=== PATIENT | female | born 1990 | race Two or more races ===

== ENCOUNTER 2024-01-13 20:23 | Emergency (ER) | payer OTHER ==
[~2024-01-13] VITALS: Ht 167.6 cm; Wt 68.0 kg
[2024-01-13] MEDS: IV NS 0.9% 1,000 ML BAG IV ONE (20:48)
[2024-01-13 20:52] LABS: BASOPHILS # (AUTO) 0.1 K/uL (0.0-0.2); BASOPHILS % (AUTO) 0.9 % (0.0-2.0); EOSINOPHILS # (AUTO) 0.1 K/uL (0.0-0.7); EOSINOPHILS % (AUTO) 1.3 % (0.0-6.0); HEMATOCRIT 34 % (33-45); LYMPHOCYTES # (AUTO) 1.5 K/uL (0.8-4.8); LYMPHOCYTES % (AUTO) 18.6 % (20.0-44.0); MEAN CORPUSCULAR HEMOGLOBIN 28 PG (26.0-33.0); MEAN CORPUSCULAR HGB CONC 33 g/dl (31.0-36.0); MEAN CORPUSCULAR VOLUME 86 fL (82-100); MONOCYTES # (AUTO) 0.7 K/uL (0.1-1.30); MONOCYTES % (AUTO) 9.5 % (2.0-12.0); NEUTROPHILS # (AUTO) 5.5 K/uL (1.8-8.9); NEUTROPHILS % (AUTO) 69.7 % (43.0-81.0); PLATELET COUNT (AUTO) 257 K/uL (150-450); RED BLOOD CELL COUNT(AUTO) 3.95 MIL/uL (4.0-5.2); RED CELL DISTRIBUTION WIDTH 16.3 % (11.5-15.0); WHITE BLOOD COUNT (AUTO) 7.9 K/uL (4.3-11.0)
[2024-01-13 21:00] LABS: CALCIUM, SERUM 8.4 mg/dL (8.5-10.1); CREATININE 0.9 mg/dL (0.6-1.3); POTASSIUM 3.3 mmol/L (3.5-5.1)
[2024-01-13] MEDS ORDERED: POTASSIUM CHLORIDE 20 MEQ TAB.PRT.SR PO ONE (21:13)
[2024-01-13] MEDS ORDERED: Magnesium 1GM/D5W 100ML PREMIX 100 ML IV ONE ×2 (21:13→21:56)
[2024-01-13 21:23] LABS: THYROID STIMULATING HORMONE 0.951 uIU/mL (0.358-3.74)
[2024-01-13] MEDS: Magnesium 1GM/D5W 100ML PREMIX 100 ML IV SCH (21:24)
[2024-01-13] MEDS: POTASSIUM CHLORIDE 20 MEQ TAB.PRT.SR PO ONE (21:24)
[2024-01-13 22:41] VITALS: BP 110/85; TEMP 98.2; O2SAT 100
== END 2024-01-13 22:42 | disposition home or self-care (01) ==
LOC: ER 20:28
DX: I47.10 Supraventricular tachycardia, unspecified (principal); R00.2 Palpitations; E87.6 Hypokalemia; E83.42 Hypomagnesemia
CPT/HCPCS: 99285; 96365; 71045; 96361; 96366; 93005; 85025; 80048; 83735; 36415; 84439; 84443; 83880; J7030; A4223; J3475 ×2